=== PATIENT | female | born 1980 | race Two or more races ===

== ENCOUNTER 2018-04-01 21:35 | Emergency (ER) | payer MEDICAID ==
[~2018-04-01] VITALS: Ht 152.4 cm; Wt 47.6 kg
[2018-04-01 22:07] LABS: BASO # 0.1 x10^3/uL (0.0-0.2); BASO % 1 % (0-3); EOS # 0.4 x10^3/uL (0.0-0.7); EOS % 4 % (0-3); HEMATOCRIT 41.4 % (36.0-47.0); HEMOGLOBIN 14.1 g/dL (12.0-15.5); LYMPH # 2.4 x10^3/uL (1.0-4.8); LYMPH % 22 % (24-48); MEAN CORPUSCULAR HEMOGLOBIN 29 pg (25-35); MEAN CORPUSCULAR HGB CONC 34 g/dL (31-37); MEAN CORPUSCULAR VOLUME 85 fL (79-100); MONO # 0.7 x10^3/uL (0.0-1.1); MONO % 7 % (0-9); NEUT # 7.3 x10^3uL (1.8-7.7); NEUT % 67 % (31-73); PLATELET COUNT 158 x10^3/uL (140-400); RED BLOOD COUNT 4.88 x10^6/uL (3.50-5.40); RED CELL DISTRIBUTION WIDTH 13.4 % (11.5-14.5); WHITE BLOOD COUNT 10.9 x10^3/uL (4.0-11.0)
--- NOTE | 2018-04-01 22:10 | PHYS DOC ---
Adult General Chief Complaint Chief Complaint: HEADACHE HPI HPI Patient is a 37 year old female who presents with headache and heat exhaustion. Patient was working when she had sudden onset of right sided headache. Patient reportedly fell to the ground. Unclear if there was LOC or not. EMS was called. Brought to the emergency department for evaluation. On arrival to the ER, the patient complains of some nausea and generalized headaches. No additional focal neuro complaints. No chest pain or palpitations. Review of Systems Review of Systems Constitutional: Denies fever or chills Eyes: Denies change in visual acuity HENT: Denies nasal congestion or sore throat Respiratory: Denies cough or shortness of breath Cardiovascular: No additional information not addressed in HPI GI: Denies abdominal pain, nausea : + dysuria Musculoskeletal: Denies back pain Integument: Denies rash or skin lesions Neurologic: Denies headache, focal weakness Endocrine: Denies polyuria or polydipsia All other systems were reviewed and found to be within normal limits, except as documented in this note. Current Medications Current Medications Current Medications Medications (Trade) Dose Ordered Sig/Kentrell Start Time Stop Time Status Last Admin Dose Admin Ceftriaxone Sodium 50 ml @ 100 mls/hr 1X ONCE 04/02/18 00:30 04/02/18 00:59 DC 04/02/18 00:50 100 MLS/HR Diphenhydramine HCl (Benadryl) 12.5 mg 1X ONCE 04/01/18 22:00 04/01/18 22:24 DC 04/01/18 23:50 12.5 MG Prochlorperazine Edisylate (Compazine) 10 mg 1X ONCE 04/01/18 22:00 04/01/18 22:24 DC 04/01/18 23:51 10 MG Sodium Chloride 1,000 ml @ 1,000 mls/hr 1X ONCE 04/01/18 22:00 04/01/18 22:59 DC 04/01/18 23:50 1,000 MLS/HR Allergies Allergies Allergies Coded Allergies Type Severity Reaction Last Updated Verified Unable to Assess 04/01/18 No Physical Exam Physical Exam Constitutional: Well developed, well nourished, no acute distress, non-toxic appearance HENT: Normocephalic, atraumatic, bilateral external ears normal, oropharynx moist Eyes: PERRLA, EOMI, conjunctiva normal Neck: Normal range of motion, no tenderness Cardiovascular:Heart rate regular rhythm, no murmur Lungs & Thorax: Bilateral breath sounds clear Abdomen: Bowel sounds normal, soft Skin: Warm, dry, no erythema, no rash Back: No tenderness Extremities: No tenderness, no edema Neurologic: Alert and oriented X 3, non-focal neurologic exam Psychologic: Affect normal Current Patient Data Lab Values Laboratory Tests Test 04/01/18 21:46 04/01/18 22:34 04/01/18 23:35 White Blood Count 10.9 x10^3/uL (4.0-11.0) Red Blood Count 4.88 x10^6/uL (3.50-5.40) Hemoglobin 14.1 g/dL (12.0-15.5) Hematocrit 41.4 % (36.0-47.0) Mean Corpuscular Volume 85 fL (79-100) Mean Corpuscular Hemoglobin 29 pg (25-35) Mean Corpuscular Hemoglobin Concent 34 g/dL (31-37) Red Cell Distribution Width 13.4 % (11.5-14.5) Platelet Count 158 x10^3/uL (140-400) Neutrophils (%) (Auto) 67 % (31-73) Lymphocytes (%) (Auto) 22 % (24-48) L Monocytes (%) (Auto) 7 % (0-9) Eosinophils (%) (Auto) 4 % (0-3) H Basophils (%) (Auto) 1 % (0-3) Neutrophils # (Auto) 7.3 x10^3uL (1.8-7.7) Lymphocytes # (Auto) 2.4 x10^3/uL (1.0-4.8) Monocytes # (Auto) 0.7 x10^3/uL (0.0-1.1) Eosinophils # (Auto) 0.4 x10^3/uL (0.0-0.7) Basophils # (Auto) 0.1 x10^3/uL (0.0-0.2) Sodium Level 138 mmol/L (136-145) Potassium Level 3.1 mmol/L (3.5-5.1) L Chloride Level 106 mmol/L (98-107) Carbon Dioxide Level 28 mmol/L (21-32) Anion Gap 4 (6-14) L Blood Urea Nitrogen 11 mg/dL (7-20) Creatinine 0.8 mg/dL (0.6-1.0) Estimated GFR (Cockcroft-Gault) 81.2 Glucose Level 116 mg/dL (70-99) H Calcium Level 9.3 mg/dL (8.5-10.1) Troponin I Quantitative < 0.017 ng/mL (0.000-0.055) Urine Collection Type Unknown Urine Color Pauline Urine Clarity Clear Urine pH 6.0 Urine Specific [place] >=1.030 Urine Protein Negative mg/dL (NEG-TRACE) Urine Glucose (UA) Negative mg/dL (NEG) Urine Ketones (Stick) Negative mg/dL (NEG) Urine Blood Negative (NEG) Urine Nitrite Positive (NEG) Urine Bilirubin Small (NEG) Urine Urobilinogen Dipstick 0.2 mg/dL (0.2 mg/dL) Urine Leukocyte Esterase Moderate (NEG) Urine RBC 0 /HPF (0-2) Urine WBC 20-40 /HPF (0-4) Urine Squamous Epithelial Cells Few /LPF Urine Bacteria Many /HPF (0-FEW) Urine Mucus Marked /LPF POC Urine HCG, Qualitative Hcg negative (Negative) Laboratory Tests 04/01/18 21:46 Laboratory Tests 04/01/18 21:46 EKG EKG No STEMI Interpretation Time: 00:30 Radiology/Procedures Radiology/Procedures CT head: negative for acute findings Course & Med Decision Making Course & Med Decision Making Pertinent Labs and Imaging studies reviewed. (See chart for details) Patient was evaluated in the emergency department for some symptoms concerning for dehydration and near-syncope. She was given IV fluids. She was given a dose of Compazine and Benadryl which did entirely relieve her headache symptoms. Her CT scan was negative. The rest of her labs were unremarkable other than the patient does have a urinary tract infection. She was given a gram of Rocephin in the ER. Urine culture was added to her lab panel. By the end of the ED course , the patient felt much improved. She will be discharged home with Macrobid over the next 5 days. All of her medications occurred with use of the blue phone as the primary language of this patient is [place]. All of her questions were answered prior to discharge home and she was agreeable to the plan of care. Dragon Disclaimer Dragon Disclaimer This electronic medical record was generated, in whole or in part, using a voice recognition dictation system. MEHREEN LLOYD DO Apr 01, 2018 22:10
[2018-04-01 22:17] LABS: CALCIUM 9.3 mg/dL (8.5-10.1); CREATININE 0.8 mg/dL (0.6-1.0); GFR 81.2; POTASSIUM 3.1 mmol/L (3.5-5.1)
[2018-04-01 23:46] LABS: BILIRUBIN,URINE SMALL (NEG); CLARITY,URINE CLEAR; COLOR,URINE AMBER; NITRITE,URINE POSITIVE (NEG); PROTEIN,URINE NEGATIVE (NEG-TRACE); UROBILINOGEN,URINE 0.2 mg/dL (0.2 mg/dL)
[2018-04-01] MEDS: IV NORMAL SALINE 1000ML BAG 1,000 ML IV ONE (23:50)
[2018-04-01] MEDS: diphenhydrAMINE 50 MG/ML VIAL IVP ONE (23:50)
[2018-04-01] MEDS: PROCHLORPERAZINE 10 MG/2 ML VIAL. IV ONE (23:51)
[2018-04-01 23:53] LABS: BACTERIA,URINE MANY /HPF (0-FEW); RBC,URINE 0 /HPF (0-2); SQUAMOUS EPITHELIAL CELL,UR FEW /LPF; WBC,URINE 20-40 /HPF (0-4)
--- NOTE | 2018-04-02 00:20 | RAD ---
RS Compliance Statement: One or more of the following individualized dose reduction techniques were utilized for this examination: 1. Automated exposure control 2. Adjustment of the mA and/or kV according to patient size 3. Use of iterative reconstruction technique CT HEAD WITHOUT CONTRAST History: sudden onset ofheadache, syncope. Comparison: None. Procedure: Axial images are obtained of the head from the skull base through the vertex without IV contrast. Findings: The ventricles and sulci are normal for the patient's age. No mass-effect, midline shift, hemorrhage, extra-axial fluid collection, or obvious acute infarction is identified. Basilar cisterns are patent. Bone windows demonstrate no acute calvarial abnormality. The visualized paranasal sinuses are clear. Mastoid air cells are well aerated. IMPRESSION: No acute intracranial abnormality. Electronically signed by: Obie Vogel MD (04/02/2018 12:16 AM) [id number]
[2018-04-02] MEDS ORDERED: NITR100C62 PO (01:16)
[2018-04-02 01:45] VITALS: BP 94/61
--- NOTE | 2018-04-02 06:13 | EKG ---
[facility] [address] [place] [address] Test Date: 2018-04-02 Test Time: 00:26:15 Pat Name: ZAMZAM LOUIS Department: Room: Gender: F Burglar Alarm Mechanic: : 1980 Requested By: MEHREEN LLOYD Order Number: [id number] Reading MD: Randolph Enciso MD Measurements Intervals [place] Rate: 59 P: 43 OK: 140 QRS: 28 QRSD: 72 T: 28 QT: 422 QTc: 422 Interpretive Statements SINUS RHYTHM Electronically Signed On 04-02-2018 12:37:37 CDT by Randolph Enciso MD
== END 2018-04-02 01:57 | disposition home or self-care (01) ==
LOC: ER 21:35
DX: T67.5XXA Heat exhaustion, unspecified, initial encounter (principal); R51 Headache; N39.0 Urinary tract infection, site not specified; X58.XXXA Exposure to other specified factors, initial encounter; Y93.89 Activity, other specified; Y92.89 Other specified places as the place of occurrence of the external cause; Y99.8 Other external cause status
CPT/HCPCS: 36415; 70450; 80048; 81001; 81025; 84484; 85025; 87086; 93005; 96365; 96375; 99285; J0690; J0780; J1200; J7030